=== PATIENT | female | born 1970 | race Caucasian/White ===

== ENCOUNTER 2018-03-09 12:17 | Emergency (ER) | payer OTHER, SELFPAY ==
[2018-03-09 12:51] VITALS: BP 110/73; PULSE 68; RESP 13; TEMP 36.4; O2SAT 99
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
[2018-03-09] MEDS: diazePAM 2 MG TABLET PO (13:41)
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
--- NOTE | 2018-03-09 14:02 | PC.NURSE ---
Addendum entered by Nadya Tipton R.N. 03/09/18 14:33: C-spine cleared by CT/provider. C-collar removed. Original Note: Pt agrees to put cervical collar on for CT scan after she receives the prescribed dose of Valium. Collar placed prior to CT scan.
[2018-03-09 15:00] VITALS: BP 111/70; PULSE 70; RESP 16; O2SAT 100
== END 2018-03-09 15:03 | disposition home or self-care (01) ==
PROVIDERS: Emergency Provider Internal Medicine
DX: S13.4XXA Sprain of ligaments of cervical spine, initial encounter (principal); S46.911A Strain of unspecified muscle, fascia and tendon at shoulder and upper arm level, right arm, initial encounter; R51 Headache; V49.50XA Passenger injured in collision with unspecified motor vehicles in traffic accident, initial encounter
CPT/HCPCS: 72125; 73030; 99283; 99284